=== PATIENT | female | born 1990 | race Caucasian/White ===

== ENCOUNTER → 2019-02-02 09:50 | Outpatient (CLI) | payer OTHER, SELFPAY ==
[2019-02-02 10:27] LABS: Hematocrit 41.2 % (36-46); Mean Corpuscular HGB Conc 33.9 % (30-36); Mean Corpuscular Hemoglobin 30.3 PG (26-34); Mean Corpuscular Volume 89.2 fL (80-100); Platelet Count 233 X10^3/uL (150-400); Red Blood Cell Count 4.62 X10^6/uL (4.0-5.2); Red Cell Distribution Width 12.9 % (11.6-14.8); White Blood Cell Count 9.9 X10^3/uL (4.5-11.0)
== END ==
PROVIDERS: Visit Provider Nurse Practitioner Family
DX: K51.911 Ulcerative colitis, unspecified with rectal bleeding (principal)
CPT/HCPCS: 36415; 85027

== ENCOUNTER 2019-02-03 22:18 | Emergency (ER) | payer OTHER, SELFPAY ==
[2019-02-03 23:00] VITALS: BP 120/69; PULSE 60; RESP 18; TEMP 36.6; O2SAT 98; BMI 23.5
[2019-02-03 23:32] VITALS: BP 110/64; PULSE 59; RESP 19; O2SAT 100
[2019-02-03 23:51] LABS: Prothrombin Time 11.5 SECONDS (10.1-12.7)
[2019-02-03 23:53] LABS: Add Manual Diff / Slide Review NO; Basophils Absolute Auto 0 /uL (0-100); Basophils Percent Auto 0.3 % (0-2); Eosinophils Absolute Auto 100 /uL (0-450); Eosinophils Percent Auto 0.8 % (2-4); Hematocrit 39.1 % (36-46); Hemoglobin 13.1 g/dL (12.0-16.0); Lymphocytes Absolute Auto 3200 /uL (1100-4500); Lymphocytes Percent Auto 23.2 % (25-40); Mean Corpuscular HGB Conc 33.4 % (30-36); Mean Corpuscular Hemoglobin 29.9 PG (26-34); Mean Corpuscular Volume 89.5 fL (80-100); Monocytes Absolute Auto 1100 /uL (0-900); Monocytes Percent Auto 7.9 % (3-14); Neutrophils Absolute Auto 9500 /uL (1500-7000); Neutrophils Percent Auto 67.8 % (50-75); Platelet Count 239 X10^3/uL (150-400); Red Blood Cell Count 4.37 X10^6/uL (4.0-5.2); Red Cell Distribution Width 12.7 % (11.6-14.8); White Blood Cell Count 13.9 X10^3/uL (4.5-11.0)
[2019-02-03 23:54] LABS: PTT Partial Thromboplastin Tim 27 SECONDS (26.4-36.2)
[2019-02-03 23:55] LABS: Alanine Aminotransferase 13 IU/L (9-52); Albumin 3.6 g/dL (3.5-5.0); Albumin Globulin Ratio 1.2 (1.0-2.8); Alkaline Phosphatase 69 U/L (38-126); Aspartate Aminotransferase 15 IU/L (14-36); BUN Creatinine Ratio 16.3 (6-22); Bilirubin Total 0.1 mg/dL (0.2-1.3); Blood Urea Nitrogen 13 mg/dL (7-17); Calcium 8.1 mg/dL (8.4-10.2); Carbon Dioxide 27 mmol/L (22-32); Chloride 103 mmol/L (98-107); Estimated Glomerular Filt Rate > 60.0 mL/min (>60); Globulin 3.1 g/dL (1.7-4.1); Glucose 99 mg/dL (70-100); HEMOLYSIS < 15 (0-50); Lipase 52 U/L (23-300); Potassium 3.7 mmol/L (3.4-5.1); Sodium 139 mmol/L (137-145); Total Protein 6.7 g/dL (6.3-8.2)
[2019-02-04 00:30] VITALS: BP 111/64; PULSE 73; RESP 16; O2SAT 98
[2019-02-04 00:54] LABS: RBC Urine None Seen (0-5/HPF)
[2019-02-04 00:58] VITALS: BP 111/64; PULSE 75; RESP 20; O2SAT 100
[2019-02-04 01:03] LABS: Bacteria Urine Few (2-10); WBC Urine 0-1/HPF (0-5/HPF)
[2019-02-04 01:04] LABS: Calcium Oxalate Crystals Urine Many; Culture Indicated Urine Specimen Cultured; Mucus Urine 3+ (Negative)
--- NOTE | 2019-02-04 01:59 | DI.CT.S_ITS ---
PROCEDURE: CT ABDOMEN PELVIS W CON INDICATIONS: Ulcerative colitis. Left mid abdomen pain. TECHNIQUE: After the administration of intravenous contrast, 5 mm thick sections acquired from the diaphragm to the symphysis. 5 mm coronal and sagittal reformats were acquired. For radiation dose reduction, the following was used: automated exposure control, adjustment of mA and/or kV according to patient size. COMPARISON: None. FINDINGS: Image quality: Excellent. ABDOMEN: Lung bases: Lung bases are clear. Minimal bibasilar pleural thickening. Heart size is normal. Solid organs: Liver is normal in size and enhancement. Gallbladder is unremarkable. Biliary system is non dilated. Pancreas enhances normally. Spleen is normal in size and enhancement. No adrenal nodules. Kidneys demonstrate normal size and enhancement, without hydronephrosis. Peritoneum and bowel: There is diffuse thickening of the wall of the colon from the distal ascending colon throughout the rest of the colon to the rectum. The bowel is nondilated. Findings are consistent with infectious versus inflammatory colitis. Consider ulcerative colitis. No free fluid or air. Nodes and vessels: No retroperitoneal or mesenteric adenopathy by size criteria. Aorta and inferior vena cava are normal in size. Miscellaneous: No ventral hernias. PELVIS: Genitourinary: Bladder wall thickness is normal. Miscellaneous: No inguinal hernias or adenopathy. Bones: No suspicious bony lesions. No vertebral body compression fractures. IMPRESSION: 1. Diffuse wall thickening of the colon from the distal ascending colon through the rectum. Findings are consistent with infectious versus inflammatory colitis. Consider ulcerative colitis. Comment: Final report is concurrent with preliminary interpretation provided by [facility]. Dictated by: Joe Day M.D. on 02/04/2019 at 7:40 Approved by: Joe Day M.D. on 02/04/2019 at 7:46
--- NOTE | 2019-02-04 02:02 | ED_ITS ---
HPI - Abdominal Pain General Chief Complaint: Abdominal Pain Stated Complaint: Ulcerative colitis flare up Time Seen by Provider: 02/04/19 01:51 Source: patient Mode of arrival: ambulatory Limitations: no limitations History of Present Illness HPI narrative: The patient has ulcerative colitis. For about the last 1.5 weeks she has had increased abdominal cramping. She has been having bloody diarrhea. Pain is primarily in the left mid abdomen. She had was seen in clinic. She has been described prednisone , Cipro and Flagyl. Despite these efforts she is still having a lot of bloody diarrhea. She is feeling fatigued. She denies associated fever or chills. Her appetite is decreased but she is still able to eat and drink. She is not vomiting. She denies dysuria. She denies possibility of . Related Data Home Medications Medication Instructions Recorded Confirmed omega-3 fatty acids 1,000 mg 1,000 mg PO DAILY 01/29/19 02/02/19 capsule Probiotic PO DAILY 02/02/19 02/02/19 Previous Rx's Medication Instructions Recorded ciprofloxacin 500 mg tablet 500 mg PO BID 7 Days #14 tab 02/01/19 metronidazole 500 mg tablet 500 mg PO Q8H 7 Days #21 tab 02/01/19 tramadol 50 mg PO Q6-8H PRN #15 tab 02/04/19 Allergies Allergy/AdvReac Type Severity Reaction Status Date / Time Penicillins Allergy turned Verified 02/02/19 09:19 purple and blue as a child Review of Systems Review of Systems ROS Unobtainable: All systems reviewed & are unremarkable except as noted in HPI and below Constitutional Denies chills, Denies fever(s), Denies lethargy and Reports weakness ENT Ears, Nose, Mouth, and Throat: Denies change in voice, Denies neck pain and Denies sore throat Cardiovascular Denies chest pain, Denies irregular heart rhythm, Denies lightheadedness, Denies palpitations, Denies dyspnea, Denies dyspnea on exertion and Denies orthopnea Respiratory Denies cough, Denies dyspnea, Denies dyspnea on exertion and Denies wheezing Gastrointestinal Gastrointestinal: Reports abdominal pain (Left mid abdomen), Denies melena, Denies change in bowel habits, Denies nausea and Denies vomiting Comments: Bloody diarrhea Genitourinary Denies dysuria Musculoskeletal Denies back pain and Denies neck pain Integumentary/Breasts Denies pruritus, Denies erythema, Denies rash and Denies wounds Neurologic Denies confusion and Reports weakness Psychiatric Reports anxiety, Denies confusion, Denies depression, Denies homicidal ideation and Denies suicidal ideation Endocrine Denies palpitations Allergic/Immunologic Denies wheezing [facility] Medical History (Updated 02/04/19 @ 03:37 by Matthew Trejo MD) Anxiety (Acute) Ulcerative colitis (Acute) Surgical History (Updated 02/04/19 @ 03:31 by Matthew Trejo MD) No pertinent past surgical history (Acute) Social History Smoking Status: Current some day smoker Social History Smoking Status: Current some day smoker Exam Initial Vital Signs Initial Vital Signs: Vital Signs Temperature 98 F 02/03/19 23:00 Pulse Rate 60 02/03/19 23:00 Respiratory Rate 18 02/03/19 23:00 Blood Pressure 120/69 02/03/19 23:00 Pulse Oximetry 98 02/03/19 23:00 Const General: cooperative and well developed Nutritional Appearance: well nourished Orientation: alert, awake, oriented x3 and not confused HENPR Head: normocephalic and atraumatic Eyes Conjunctivae: conjunctivae normal Sclera: sclerae normal Neck Neck: No lymphadenopathy and No tender Resp Effort & Inspection: normal respiratory effort, able to speak in complete sentences, no respiratory distress and no use of accessory muscles Auscultation: clear to auscultation bilaterally, no rales, no rhonchi and no wheezes Cardio Rate: regular rate Rhythm: regular rhythm Heart Sounds: no click, no gallops, no murmurs and no rubs Pulses: normal peripheral pulses GI Inspection: non-distended Palpation: soft, no hepatosplenomegaly, No pulsatile mass and tender (Left mid abdominal tenderness without guarding or rebound.) Auscultation: normal bowel sounds Back/Spine/Pelvis Back: No CVA tenderness Skin General: no rashes or lesions noted, No jaundice and No petechiae Neuro General: alert, oriented x3, gait normal and no focal motor deficits Speech: speech normal Extrem General: full ROM, no pedal edema and no calf tenderness Psych Appearance: well kempt Mental Status: mental status grossly normal Attitude: cooperative Thought Content: normal and suicidality Judgment: judgment good Course Course Narrative: The patient has improved after IV fluids and IV Dilaudid. She states she is feeling better. The CT confirms significant colitis with inflammatory changes. I recommended an admission for pain management, and potentially bowel rest with IV fluid support. She declined stating she is unable to afford hospital admission. She will discharged on clear liquids with pain meds in addition to her current medications. Orders Ordered: ED Orders 02/03/19 23:35 Complete Blood Count AUTO DIFF Stat Comprehensive Metabolic Panel Stat Lipase Stat Partial Thromboplastin Time Stat Prothrombin Time INR Stat 02/03/19 23:39 EKG-12 Lead Stat 02/04/19 00:40 Urine Culture Stat Urine Microscopic Stat 02/04/19 01:57 Complete Blood Count AUTO DIFF Stat Comprehensive Metabolic Panel Stat Lipase Stat 02/04/19 01:59 CT abdomen pelvis w con Stat Prothrombin Time INR Stat Discontinued Medications Hydromorphone HCl (Dilaudid) 1 mg IV NOW ONE Stop: 02/04/19 01:58 Last Admin: 02/04/19 02:03 Dose: 1 mg Sodium Chloride (Normal Saline 0.9%) 1,000 mls @ 1,000 mls/hr IV BOLUS ONE Stop: 02/04/19 02:58 Last Infusion: 02/04/19 03:47 Dose: 0 mls/hr Admin: 02/04/19 02:03 Dose: 1,000 mls/hr Vital Signs - 8 hr 02/03/19 23:00 02/03/19 23:32 02/04/19 00:30 Temperature 98 F Pulse Rate 60 59 L 73 Respiratory Rate 18 19 16 Blood Pressure 120/69 Blood Pressure [Left Arm] 110/64 111/64 Pulse Oximetry 98 100 98 02/04/19 00:58 02/04/19 03:44 Temperature Pulse Rate 75 60 Respiratory Rate 20 20 Blood Pressure Blood Pressure [Left Arm] 111/64 103/60 Pulse Oximetry 100 100 MDM - Abdominal Pain Lab Data Result diagrams: 02/03/19 23:35 02/03/19 23:35 Lab Results 02/03/19 02/03/19 02/03/19 Range/Units 23:35 23:35 23:35 WBC 13.9 H (4.5-11.0) X10^3/uL RBC 4.37 (4.0-5.2) X10^6/uL Hgb 13.1 (12.0-16.0) g/dL Hct 39.1 (36-46) % MCV 89.5 (80-100) fL MCH 29.9 (26-34) PG MCHC 33.4 (30-36) % RDW 12.7 (11.6-14.8) % Plt Count 239 (150-400) X10^3/uL Neut % (Auto) 67.8 (50-75) % Lymph % (Auto) 23.2 L (25-40) % [place] % (Auto) 7.9 (3-14) % Eos % (Auto) 0.8 L (2-4) % Baso % (Auto) 0.3 (0-2) % Neut # (Auto) 9500 H (8074-2454) /uL Lymph # (Auto) 3200 (1301-3272) /uL [place] # (Auto) 1100 H (0-900) /uL Eos # (Auto) 100 (0-450) /uL Baso # (Auto) 0 (0-100) /uL PT 11.5 (10.1-12.7) SECONDS INR 1.0 (0.9-1.3) APTT 27 (26.4-36.2) SECONDS Sodium 139 (137-145) mmol/L Potassium 3.7 (3.4-5.1) mmol/L Chloride 103 (98-107) mmol/L Carbon Dioxide 27 (22-32) mmol/L BUN 13 (7-17) mg/dL Creatinine 0.80 (0.52-1.04) mg/dL Estimated GFR > 60.0 (>60) mL/min BUN/Creatinine Ratio 16.3 (6-22) Glucose 99 (70-100) mg/dL Calcium 8.1 L (8.4-10.2) mg/dL Total Bilirubin 0.1 L (0.2-1.3) mg/dL AST 15 (14-36) IU/L ALT 13 (9-52) IU/L Alkaline Phosphatase 69 (38-126) U/L Total Protein 6.7 (6.3-8.2) g/dL Albumin 3.6 (3.5-5.0) g/dL Globulin 3.1 (1.7-4.1) g/dL Albumin/Globulin Ratio 1.2 (1.0-2.8) Lipase 52 (23-300) U/L Urine RBC (0-5/HPF) Urine WBC (0-5/HPF) Calcium Oxalate Crystal Urine Bacteria (None) Urine Mucus (Negative) Ur Culture Indicated? 02/04/19 Range/Units 00:40 WBC (4.5-11.0) X10^3/uL RBC (4.0-5.2) X10^6/uL Hgb (12.0-16.0) g/dL Hct (36-46) % MCV (80-100) fL MCH (26-34) PG MCHC (30-36) % RDW (11.6-14.8) % Plt Count (150-400) X10^3/uL Neut % (Auto) (50-75) % Lymph % (Auto) (25-40) % [place] % (Auto) (3-14) % Eos % (Auto) (2-4) % Baso % (Auto) (0-2) % Neut # (Auto) (7275-9753) /uL Lymph # (Auto) (7315-4380) /uL [place] # (Auto) (0-900) /uL Eos # (Auto) (0-450) /uL Baso # (Auto) (0-100) /uL PT (10.1-12.7) SECONDS INR (0.9-1.3) APTT (26.4-36.2) SECONDS Sodium (137-145) mmol/L Potassium (3.4-5.1) mmol/L Chloride (98-107) mmol/L Carbon Dioxide (22-32) mmol/L BUN (7-17) mg/dL Creatinine (0.52-1.04) mg/dL Estimated GFR (>60) mL/min BUN/Creatinine Ratio (6-22) Glucose (70-100) mg/dL Calcium (8.4-10.2) mg/dL Total Bilirubin (0.2-1.3) mg/dL AST (14-36) IU/L ALT (9-52) IU/L Alkaline Phosphatase (38-126) U/L Total Protein (6.3-8.2) g/dL Albumin (3.5-5.0) g/dL Globulin (1.7-4.1) g/dL Albumin/Globulin Ratio (1.0-2.8) Lipase (23-300) U/L Urine RBC None seen (0-5/HPF) Urine WBC 0-1/hpf (0-5/HPF) Calcium Oxalate Crystal Many H Urine Bacteria Few (2-10) H (None) Urine Mucus 3+ H (Negative) Ur Culture Indicated? Specimen cultured Point of care testing: Point of Care Testing Test Results Negative Urine Dip Bedside Urine Glucose Negative Bedside Urine Bilirubin - Negative Bedside Urine Ketone +/- 5 Urine Specific [place] 1.030 Bedside Urine Occult Blood - Negative Bedside Urine pH 6.0 Bedside Urine Protein + 30 Bedside Urine Urobilinogen +/- 1mg Bedside Urine Nitrite + Positive Bedside Urine Leukocytes + [address] scan - abdomen: Radiologist's impression: Diffuse colon wall thickening extending from the distal ascending colon to the sigmoid colon. Findings most consistent with infl ammatory versus infectious colitis Discharge Plan Departure Patient Disposition: Home Clinical Impression: Ulcerative colitis with rectal bleeding Qualifiers: Ulcerative colitis location: ulcerative pancolitis Qualified Code(s): K51.011 - Ulcerative (chronic) pancolitis with rectal bleeding Instructions: DI for Ulcerative Colitis Activity Restrictions/Additional Instructions: Continue with your current medications. Tramadol every 6 hours as needed for pain. I would recommend a clear liquid diet until your symptoms improve. Return the ER if he has increasing pain or fever. Prescriptions: New tramadol 50 mg tablet 50 mg PO Q6-8H PRN (Reason: pain) Qty: 15 RF: 0 No Action omega-3 fatty acids [Fish Oil Concentrate] 1,000 mg capsule 1,000 mg PO DAILY RF: 0 metronidazole 500 mg tablet 500 mg PO Q8H 7 Days Qty: 21 RF: 0 ciprofloxacin HCl [Cipro] 500 mg tablet 500 mg PO BID 7 Days Qty: 14 RF: 0 Probiotic PO DAILY RF: 0
[2019-02-04] MEDS: HYDROMORPHONE 1 MG INJ IV (02:03)
[2019-02-04] MEDS: SODIUM CHLORIDE 0.9% 1,000 ML 1000 ML IV (02:03)
[2019-02-04 03:44] VITALS: BP 103/60; PULSE 60; RESP 20; O2SAT 100
== END 2019-02-04 04:00 | disposition home or self-care (01) ==
PROVIDERS: Emergency Provider Emergency Medicine
DX: K51.011 Ulcerative (chronic) pancolitis with rectal bleeding (principal); R53.83 Other fatigue; K92.1 Melena
CPT/HCPCS: 36591; 74177; 80053; 81003; 81015; 81025; 83690; 85025; 85610; 85730; 87086; 96361; 96374; 99283; 99285; J1170; Q9967

== ENCOUNTER 2019-02-04 19:13 | Inpatient (IN) | payer OTHER, SELFPAY ==
[2019-02-04 19:20] VITALS: BP 110/73; PULSE 65; RESP 20; TEMP 36.9; O2SAT 99
--- NOTE | 2019-02-04 19:39 | ED_ITS ---
HPI - Abdominal Pain General Chief Complaint: Abdominal Pain Stated Complaint: states has Colitis and a flare up Time Seen by Provider: 02/04/19 19:34 Source: patient Mode of arrival: ambulatory Limitations: no limitations History of Present Illness HPI narrative: Patient is a 28-year-old female with a history of ulcerative colitis. Was admitted back in 2017 for a ?flare up? has seen Dr. Patrice Parsons with GI in [place] in 2017. But has not had any follow-up since then. Couple days ago patient started having generalized abdominal pain and rectal bleeding. Was placed on prednisone and Cipro and Flagyl. She is on day 6 of prednisone. She was seen here in the emergency department last evening for rectal bleeding and abdominal pain. Had a CT scan performed which showed a cristobal colitis. She did have an elevated white blood cell count. There was discussion at that time of being admitted to the hospital however the patient declined. She returns this evening for continued symptoms. Related Data Home Medications Medication Instructions Recorded Confirmed omega-3 fatty acids 1,000 mg 1,000 mg PO DAILY 01/29/19 02/02/19 capsule Probiotic PO DAILY 02/02/19 02/02/19 Previous Rx's Medication Instructions Recorded ciprofloxacin 500 mg tablet 500 mg PO BID 7 Days #14 tab 02/01/19 metronidazole 500 mg tablet 500 mg PO Q8H 7 Days #21 tab 02/01/19 tramadol 50 mg PO Q6-8H PRN #15 tab 02/04/19 Allergies Allergy/AdvReac Type Severity Reaction Status Date / Time Penicillins Allergy turned Verified 02/02/19 09:19 purple and blue as a child Review of Systems Constitutional Denies fever(s) Cardiovascular Denies chest pain and Denies dyspnea Respiratory Denies dyspnea Gastrointestinal Gastrointestinal: Reports abdominal pain and Reports diarrhea Comments: Blood red blood per rectum Genitourinary Denies dysuria Musculoskeletal Denies myalgias and Denies arthralgias Integumentary/Breasts Denies lesions and Denies rash Neurologic Denies behavioral changes Psychiatric Denies behavioral changes Hematologic/Lymphatic Denies easy bleeding and Denies easy bruising Allergic/Immunologic Denies urticaria [facility] Medical History Anxiety (Acute) Ulcerative colitis (Acute) Surgical History No pertinent past surgical history (Acute) Social History Smoking Status: Current some day smoker Social History household members: spouse and family Smoking Status: Current some day smoker alcohol intake: never Exam Initial Vital Signs Initial Vital Signs: Vital Signs Temperature 98.4 F 02/04/19 19:20 Pulse Rate 65 02/04/19 19:20 Respiratory Rate 20 02/04/19 19:20 Blood Pressure 110/73 02/04/19 19:20 Pulse Oximetry 99 02/04/19 19:20 Const General: cooperative, comfortable, well developed, well groomed and No acute distress Orientation: alert, awake and oriented x3 HENMT Head: normal to inspection and normocephalic Resp Effort & Inspection: normal respiratory effort Auscultation: clear to auscultation bilaterally Cardio Rate: regular rate Rhythm: regular rhythm Pulses: radial pulses present GI Inspection: non-distended Palpation: soft, No firm and tender (Diffusely tender) Rectal Exam: normal sphincter tone and heme negative stool Skin Lesions: no lesions Rashes: no rashes Neuro General: alert, awake and oriented x3 Cognition: normal cognition Speech: speech normal Extrem General: normal to inspection and capillary refill normal Course Orders Ordered: ED Orders 02/04/19 19:45 Complete Blood Count AUTO DIFF Stat Comprehensive Metabolic Panel Stat Lactate (Lactic Acid) Stat Lipase Stat Test Serum,Qual Stat 02/04/19 20:02 Urine Microscopic Stat 02/04/19 23:02 Education, smoking cessation ONGOING 02/05/19 05:00 Basic Metabolic Panel Routine Complete Blood Count AUTO DIFF Routine 02/05/19 23:15 Consult to Dietitian, Adult Routine Acetaminophen (Tylenol) 650 mg PO Q6HR PRN PRN Reason: As Needed for Fever/Mild Pain Hydromorphone HCl (Dilaudid) 0.5 mg IV Q4HR PRN PRN Reason: Pain, Severe (7-10) Dextrose/Sodium Chloride (Dextrose 5%-0.45% Ns) 1,000 mls @ 100 mls/hr IV CONT CLEM Metronidazole (Flagyl) 500 mg in 100 mls @ 100 mls/hr IV Q6H CLEM Ceftriaxone Sodium/Dextrose (Rocephin) 1 gm in 50 mls @ 100 mls/hr IV Q24H [facility] Ketorolac Tromethamine (Toradol) 15 mg IV Q6HR CLEM Stop: 02/09/19 23:13 Naloxone HCl (Narcan) 0.2 mg IV Q2MIN PRN PRN Reason: Opiate Reversal Non-Formulary Medication (Probiotic) 250 1000units PO DAILY [facility] Ondansetron HCl (Zofran) 4 mg IV Q8HR PRN PRN Reason: Nausea And Vomiting Discontinued Medications Hydromorphone HCl (Dilaudid) 0.5 mg IV NOW ONE Stop: 02/04/19 20:21 Last Admin: 02/04/19 20:24 Dose: 0.5 mg Hydromorphone HCl (Dilaudid) 0.5 mg IV NOW ONE Stop: 02/04/19 22:58 Last Admin: 02/04/19 23:02 Dose: 0.5 mg Sodium Chloride (Normal Saline 0.9%) 1,000 mls @ 1,000 mls/hr IV BOLUS ONE Stop: 02/04/19 20:42 Last Infusion: 02/04/19 21:14 Dose: 0 mls/hr Admin: 02/04/19 20:11 Dose: 1,000 mls/hr Vital Signs - 8 hr 02/04/19 19:20 02/04/19 21:00 02/04/19 21:08 Temperature 98.4 F Pulse Rate 65 68 Respiratory Rate 20 18 Blood Pressure 110/73 Blood Pressure [Right Arm] 118/71 Pulse Oximetry 99 98 02/04/19 22:38 02/04/19 23:49 Temperature Pulse Rate 62 64 Respiratory Rate 16 16 Blood Pressure Blood Pressure [Right Arm] 112/61 110/50 L Pulse Oximetry 100 100 MDM - Abdominal Pain Lab Data Attestation: I reviewed the patient's lab results. Result diagrams: 02/04/19 19:45 02/04/19 19:45 Lab Results 02/04/19 02/04/19 02/04/19 Range/Units 19:45 19:45 19:45 WBC 16.8 H (4.5-11.0) X10^3/uL RBC 4.39 (4.0-5.2) X10^6/uL Hgb 13.2 (12.0-16.0) g/dL Hct 39.3 (36-46) % MCV 89.5 (80-100) fL MCH 30.0 (26-34) PG MCHC 33.5 (30-36) % RDW 13.0 (11.6-14.8) % Plt Count 225 (150-400) X10^3/uL Neut % (Auto) 85.4 H (50-75) % Lymph % (Auto) 10.0 L (25-40) % [place] % (Auto) 4.4 (3-14) % Eos % (Auto) 0.0 L (2-4) % Baso % (Auto) 0.2 (0-2) % Neut # (Auto) 18021 H (9334-8926) /uL Lymph # (Auto) 1700 (9633-0291) /uL [place] # (Auto) 700 (0-900) /uL Eos # (Auto) 0 (0-450) /uL Baso # (Auto) 0 (0-100) /uL Sodium 137 (137-145) mmol/L Potassium 3.6 (3.4-5.1) mmol/L Chloride 102 (98-107) mmol/L Carbon Dioxide 26 (22-32) mmol/L BUN 8 (7-17) mg/dL Creatinine 0.80 (0.52-1.04) mg/dL Estimated GFR > 60.0 (>60) mL/min BUN/Creatinine Ratio 10.0 (6-22) Glucose 106 H (70-100) mg/dL Lactate 0.9 (0.7-2.1) mmol/L Calcium 8.7 (8.4-10.2) mg/dL Total Bilirubin 0.4 (0.2-1.3) mg/dL AST 18 (14-36) IU/L ALT 21 (9-52) IU/L Alkaline Phosphatase 63 (38-126) U/L Total Protein 7.1 (6.3-8.2) g/dL Albumin 3.9 (3.5-5.0) g/dL Globulin 3.2 (1.7-4.1) g/dL Albumin/Globulin Ratio 1.2 (1.0-2.8) Lipase 28 (23-300) U/L Serum , Qual (Negative) Urine RBC (0-5/HPF) Urine WBC (0-5/HPF) Ur Squamous Epith Cells (0-5/HPF) Urine Bacteria (None) Ur Culture Indicated? 02/04/19 02/04/19 Range/Units 19:45 20:02 WBC (4.5-11.0) X10^3/uL RBC (4.0-5.2) X10^6/uL Hgb (12.0-16.0) g/dL Hct (36-46) % MCV (80-100) fL MCH (26-34) PG MCHC (30-36) % RDW (11.6-14.8) % Plt Count (150-400) X10^3/uL Neut % (Auto) (50-75) % Lymph % (Auto) (25-40) % [place] % (Auto) (3-14) % Eos % (Auto) (2-4) % Baso % (Auto) (0-2) % Neut # (Auto) (7152-1008) /uL Lymph # (Auto) (7816-2484) /uL [place] # (Auto) (0-900) /uL Eos # (Auto) (0-450) /uL Baso # (Auto) (0-100) /uL Sodium (137-145) mmol/L Potassium (3.4-5.1) mmol/L Chloride (98-107) mmol/L Carbon Dioxide (22-32) mmol/L BUN (7-17) mg/dL Creatinine (0.52-1.04) mg/dL Estimated GFR (>60) mL/min BUN/Creatinine Ratio (6-22) Glucose (70-100) mg/dL Lactate (0.7-2.1) mmol/L Calcium (8.4-10.2) mg/dL Total Bilirubin (0.2-1.3) mg/dL AST (14-36) IU/L ALT (9-52) IU/L Alkaline Phosphatase (38-126) U/L Total Protein (6.3-8.2) g/dL Albumin (3.5-5.0) g/dL Globulin (1.7-4.1) g/dL Albumin/Globulin Ratio (1.0-2.8) Lipase (23-300) U/L Serum , Qual Negative (Negative) Urine RBC None seen (0-5/HPF) Urine WBC 0-1/hpf (0-5/HPF) Ur Squamous Epith Cells 0-1 /hpf (0-5/HPF) Urine Bacteria None seen (None) Ur Culture Indicated? Cult not indicated Point of care testing: Urine Dip Bedside Urine Glucose Negative Bedside Urine Bilirubin - Negative Bedside Urine Ketone +/- 5 Urine Specific [place] 1.025 Bedside Urine Occult Blood - Negative Bedside Urine pH 6.0 Bedside Urine Protein - Negative Bedside Urine Urobilinogen - Negative Bedside Urine Nitrite - Negative Bedside Urine Leukocytes + [address] scan - abdomen: Radiologist's impression: [address] [address] XRay Report Signed Patient: Riccardo Dave MMR#: [id number] : 3Acct:[id number] Age/Sex: 89 / FDate of Service: 02/04/19 Loc: ED Accession Number: [id number] Procedure: XR chest 2V Ordering Provider: Marcello Gomes D.O. PROCEDURE: XR CHEST 2V INDICATIONS: Cough eval for pneumonia TECHNIQUE: 2 views of the chest were acquired. COMPARISON: [facility], , CHEST 1 VIEW, 08/19/2017, 11:41. FINDINGS: Surgical changes and devices: Surgical clips are seen in left axilla. Lungs and pleura: Blunting of left costophrenic angle is seen suggestive of small left pleural effusion. No focal infiltrate or gross pneumothorax. Right lung is clear. Mediastinum: Mediastinal contours are normal. Heart size is mildly enlarged. Bones and chest wall: No suspicious bony abnormalities. Soft tissues appear unremarkable. Osteoarthritic changes in bilateral shoulder joints are seen. IMPRESSION: Suggestion of small left pleural effusion/thickening. No focal infiltrate or pneumothorax. Dictated by: Nikolas Poon M.D. on 02/04/2019 at 19:09 Approved by: Nikolas Poon M.D. on 02/04/2019 at 19:11 [facility] Narrative Medical decision making narrative: The CT scan included in this note is for reference purposes. It was ordered during her visit here last evening. I discussed the case with Dr. Taylor with General surgery who stated that there would be no emergent/urgent surgical intervention and that the patient could be admitted under the medicine service. She also brought up that the patient may be better off at a facility with a GI service. I did discuss the case with Internal Medicine at [facility] who had beds available however the hos nneka stated that he would only accept the patient after we talked with the GI providers. Upon discussing this with the patient she stated that she did not want to be transferred. She would like to be admitted at this hospital because there is the potential that GI would not be involved. I discussed the case with VALERIE Ro the night hospitalist who will admit the patient for further evaluation and treatment. Patient agrees with the admission. Discharge Plan Departure Patient Disposition: Admitted as Observation Clinical Impression: Colitis Discharge Date/Time: 02/05/19 00:10 Interventions: ED Discharge Assessment Last Done: 02/04/19 23:51 Admit Date/Time: 02/04/19 22:59 Admit Provider: Maritza Ro
[2019-02-04 20:07] LABS: Add Manual Diff / Slide Review NO; Basophils Absolute Auto 0 /uL (0-100); Basophils Percent Auto 0.2 % (0-2); Eosinophils Absolute Auto 0 /uL (0-450); Hematocrit 39.3 % (36-46); Hemoglobin 13.2 g/dL (12.0-16.0); Lymphocytes Absolute Auto 1700 /uL (1100-4500); Mean Corpuscular HGB Conc 33.5 % (30-36); Mean Corpuscular Volume 89.5 fL (80-100); Monocytes Absolute Auto 700 /uL (0-900); Monocytes Percent Auto 4.4 % (3-14); Neutrophils Absolute Auto 14300 /uL (1500-7000); Neutrophils Percent Auto 85.4 % (50-75); Platelet Count 225 X10^3/uL (150-400); Red Blood Cell Count 4.39 X10^6/uL (4.0-5.2); White Blood Cell Count 16.8 X10^3/uL (4.5-11.0)
[2019-02-04] MEDS: SODIUM CHLORIDE 0.9% 1,000 ML 1000 ML IV (20:11)
[2019-02-04 20:17] LABS: Bacteria Urine None Seen; RBC Urine None Seen (0-5/HPF)
[2019-02-04 20:17] LABS: Alanine Aminotransferase 21 IU/L (9-52); Albumin 3.9 g/dL (3.5-5.0); Albumin Globulin Ratio 1.2 (1.0-2.8); Alkaline Phosphatase 63 U/L (38-126); Aspartate Aminotransferase 18 IU/L (14-36); Bilirubin Total 0.4 mg/dL (0.2-1.3); Blood Urea Nitrogen 8 mg/dL (7-17); Calcium 8.7 mg/dL (8.4-10.2); Carbon Dioxide 26 mmol/L (22-32); Chloride 102 mmol/L (98-107); Estimated Glomerular Filt Rate > 60.0 mL/min (>60); Globulin 3.2 g/dL (1.7-4.1); Glucose 106 mg/dL (70-100); HEMOLYSIS < 15 (0-50); Lipase 28 U/L (23-300); Potassium 3.6 mmol/L (3.4-5.1); Sodium 137 mmol/L (137-145); Total Protein 7.1 g/dL (6.3-8.2)
[2019-02-04 20:18] LABS: Lactate (Lactic Acid) 0.9 mmol/L (0.7-2.1)
[2019-02-04 20:23] LABS: Pregnancy Test Serum,Qual Negative (Negative)
[2019-02-04 20:24] LABS: Culture Indicated Urine Cult Not Indicated; Squamous Epithelial Cell Urine 0-1 /HPF (0-5/HPF); WBC Urine 0-1/HPF (0-5/HPF)
[2019-02-04] MEDS: HYDROMORPHONE 1 MG INJ 0.5 MG IV ×2 (20:24→23:02)
[2019-02-04 21:00] VITALS: BP 118/71
[2019-02-04 21:08] VITALS: PULSE 68; RESP 18; O2SAT 98
[2019-02-04 22:38] VITALS: BP 112/61; PULSE 62; RESP 16; O2SAT 100
[2019-02-04 23:49] VITALS: BP 110/50; PULSE 64; RESP 16; O2SAT 100
[2019-02-05] VITALS (9 sets, daily range): BP systolic 110–126; BP diastolic 49–70; PULSE 56–74; RESP 16–18; TEMP 36.4–37; O2SAT 97–100; BMI 23.5
[2019-02-05] MEDS: DEXTROSE 5%-0.45% NS 1,000 ML 100 ML IV ×2 (00:45→13:33)
--- NOTE | 2019-02-05 00:45 | PM.HP.1 ---
History of Present Illness Date Patient Seen: 02/04/19 Time Patient Seen: 23:00 Chief complaint: states has Colitis and a flare up Narrative: 28 y.o. female with a several day with a history of ulcerative colitis, now seen a second day in a row for this. She was seen on 02/04 in the evening, was diagnosed with a cristobal colitis and was advised to stay, but declined. CT scan performed yesterday indicated a cristobal colitis. She was discharged on oral predinisone, ciprofloxacin and metronidazole. She returns today with worsening abdominal cramping and bloody stool. In the ED, they discussed her case with Dr. Taylor, general surgery, then with a network operations analyst at [facility] in [place] both who advised conservative medical management with fluids, bowel rest and antibiotics. Since yesterday her white count increased from 13 to 16. Patient states she was admitted back in 2017 for a ?flare up? and was seen Dr. Patrice Parsons with GI in [place] in 2017. But has not had any follow-up since then. Patient History Medical History (Updated 02/05/19 @ 01:11 by ASH Love) Ulcerative colitis with rectal bleeding (Acute 2012) Ulcerative colitis (Acute) Anxiety (Chronic) Surgical History (Updated 02/05/19 @ 00:57 by ASH Love) History of repair of anterior cruciate ligament of right knee (Inactive) Family History (Updated 02/05/19 @ 00:58 by ASH Love) Mother IBS (irritable bowel syndrome) Sister IBS (irritable bowel syndrome) Social History household members: spouse and family Smoking Status: Current some day smoker alcohol intake: never Family & Social History Social History: household members spouse,family Prior Living Arrangements House Safety & Behavioral: Feels Safe in Current Yes Environment Been Physically Hurt or No Threatened By a Person Suicidal Ideation Description None Tobacco & Substance use: Tobacco type smokeless tobacco Smoking Status Current some day smoker alcohol intake never Substance Use Type does not use Meds Home Medications Medication Instructions Recorded Confirmed Type omega-3 fatty acids 1,000 mg 1,000 mg PO DAILY 01/29/19 02/05/19 History capsule ciprofloxacin 500 mg tablet 500 mg PO BID 7 Days #14 tab 02/01/19 02/05/19 Rx metronidazole 500 mg tablet 500 mg PO Q8H 7 Days #21 tab 02/01/19 02/05/19 Rx Probiotic 1 cap PO DAILY 02/02/19 02/05/19 History tramadol 50 mg PO Q6-8H PRN #15 tab 02/04/19 02/05/19 Rx Allergies Allergy/AdvReac Type Severity Reaction Status Date / Time Penicillins Allergy turned Verified 02/02/19 09:19 purple and blue as a child Review of Systems Review of Systems Patient states she has been warmer at night, poor appetite, only able to tolerate jello, has had nausea from receiving dilaudid in the ED, but no vomiting, has abdominal cramping, bloody and runny stool and back spasms. Denies fever, shortness of breath, chest pain, difficulty swallowing, or numbing or tingling. Exam Vital Signs (past 8 hours): - 02/04/19 19:20 02/04/19 21:00 02/04/19 21:08 Temperature 98.4 F Pulse Rate 65 68 Respiratory Rate 20 18 Blood Pressure 110/73 Blood Pressure [Right Arm] 118/71 Pulse Oximetry 99 98 02/04/19 22:38 02/04/19 23:49 Temperature Pulse Rate 62 64 Respiratory Rate 16 16 Blood Pressure Blood Pressure [Right Arm] 112/61 110/50 L Pulse Oximetry 100 100 Oxygen Delivery Method Room Air Narrative Exam Narrative: Gen: Alert, oriented 28 y.o. well developed female, NAD HEENT: normocephalic, atraumatic, conjunctiva clear, sclera non-icteric, oral mucosa pink and moist Neck: supple, full ROM Resp: Lungs CTA, non-labored breathing CV: RRR, no murmur or rubs Abd: soft, diffusely tender, hyperactive BTs Skin: no lesions or rashes, dry and intact Neuro: Alert and oriented X 4 w/no focal deficits Extremities: moves all 4 extremities, is ambulatory Psyche: normal mood and affect. Objective Labs Result Diagrams: 02/04/19 19:45 02/04/19 19:45 Labs: Laboratory Results - last 24 hr 02/04/19 02/04/19 02/04/19 19:45 19:45 19:45 WBC 16.8 H RBC 4.39 Hgb 13.2 Hct 39.3 MCV 89.5 MCH 30.0 MCHC 33.5 RDW 13.0 Plt Count 225 Neut % (Auto) 85.4 H Lymph % (Auto) 10.0 L [place] % (Auto) 4.4 Eos % (Auto) 0.0 L Baso % (Auto) 0.2 Neut # (Auto) 96266 H Lymph # (Auto) 1700 [place] # (Auto) 700 Eos # (Auto) 0 Baso # (Auto) 0 Sodium 137 Potassium 3.6 Chloride 102 Carbon Dioxide 26 BUN 8 Creatinine 0.80 Estimated GFR > 60.0 BUN/Creatinine Ratio 10.0 Glucose 106 H Lactate 0.9 Calcium 8.7 Total Bilirubin 0.4 AST 18 ALT 21 Alkaline Phosphatase 63 Total Protein 7.1 Albumin 3.9 Globulin 3.2 Albumin/Globulin Ratio 1.2 Lipase 28 Serum , Qual Urine RBC Urine WBC Ur Squamous Epith Cells Urine Bacteria Ur Culture Indicated? 02/04/19 02/04/19 19:45 20:02 WBC RBC Hgb Hct MCV MCH MCHC RDW Plt Count Neut % (Auto) Lymph % (Auto) [place]cdonald % (Auto) Eos % (Auto) Baso % (Auto) Neut # (Auto) Lymph # (Auto) [place]cd[place] # (Auto) Eos # (Auto) Baso # (Auto) Sodium Potassium Chloride Carbon Dioxide BUN Creatinine Estimated GFR BUN/Creatinine Ratio Glucose Lactate Calcium Total Bilirubin AST ALT Alkaline Phosphatase Total Protein Albumin Globulin Albumin/Globulin Ratio Lipase Serum , Qual Negative Urine RBC None seen Urine WBC 0-1/hpf Ur Squamous Epith Cells 0-1 /hpf Urine Bacteria None seen Ur Culture Indicated? Cult not indicated Assessment & Plan (1) Ulcerative colitis with rectal bleeding: Current visit: Yes Status: Acute Assessment & Plan narrative: Patient will be provided bowel rest, fluids and antibiotic treatment - IV Ceftriaxone 1 gram daily and metronidazole 500 mg IV 4 times daily - Pain control with toradal and low dose IV dilaudid - d5 half normal saline at 100 ml/hour Patient is admitted to observation as his/her stay is anticipated to exceed 2 midnights. D5 half NS at 100 ml/hour VTE Prophylaxis: bilateral SCDs Disposition: Probable discharge to home Code status: Full Code Admission time: 50 minutes Meds reconciled: Yes/No/Partial based on current med list Time Spent With Patient Time with patient: 15-24 minutes
[2019-02-05] MEDS: CEFTRIAXONE 1 GM/50 ML FROZ.PIGGY IV ×2 (00:49→23:48)
[2019-02-05] MEDS: KETOROLAC 30 MG/ML VIAL 15 MG IV (01:15)
[2019-02-05] MEDS: metroNIDAZOLE 500 MG/100 ML PIGGYBACK 100 MG IV ×4 (01:17→20:15)
--- NOTE | 2019-02-05 01:48 | PC.NURSE ---
Told by pt nurse order to dc tele is there and it is to be dc'd
--- NOTE | 2019-02-05 02:26 | PC.NURSE ---
Admission note: Pt arrived at 0020 by w/c accompanied by ED RN, transferred self to bed with no issues, IV fluids initiated and meds given per MAR. Admission was notable for abdominal pain, bloating, diarrhea, and nausea. Pt has hx of UC and had been given medications for this current flare outpatient, verified those meds in EMAR, told pt to not take home meds, pt acknowledged. Oriented pt to room, call light, safety measures and checks complete, pt is a low fall risk. Pt had a BM during admission, unfortunately it was mixed with urine and was not suitable for lab sample, visible blood in the diarrhea. Pt aware that stool sample is required and to call next time she has a BM. Pt acknowledged all teaching and was allowed to sleep.
[2019-02-05 05:45] LABS: Add Manual Diff / Slide Review NO; Basophils Absolute Auto 100 /uL (0-100); Basophils Percent Auto 0.4 % (0-2); Eosinophils Absolute Auto 200 /uL (0-450); Hematocrit 36.4 % (36-46); Hemoglobin 12.3 g/dL (12.0-16.0); Lymphocytes Absolute Auto 3000 /uL (1100-4500); Lymphocytes Percent Auto 26.2 % (25-40); Mean Corpuscular HGB Conc 33.8 % (30-36); Mean Corpuscular Hemoglobin 30.2 PG (26-34); Mean Corpuscular Volume 89.4 fL (80-100); Monocytes Absolute Auto 900 /uL (0-900); Monocytes Percent Auto 8.2 % (3-14); Neutrophils Absolute Auto 7300 /uL (1500-7000); Neutrophils Percent Auto 63.2 % (50-75); Platelet Count 201 X10^3/uL (150-400); Red Blood Cell Count 4.07 X10^6/uL (4.0-5.2); Red Cell Distribution Width 12.6 % (11.6-14.8); White Blood Cell Count 11.6 X10^3/uL (4.5-11.0)
[2019-02-05 05:55] LABS: BUN Creatinine Ratio 11.3 (6-22); Blood Urea Nitrogen 9 mg/dL (7-17); Calcium 8.2 mg/dL (8.4-10.2); Carbon Dioxide 26 mmol/L (22-32); Chloride 105 mmol/L (98-107); Estimated Glomerular Filt Rate > 60.0 mL/min (>60); Glucose 102 mg/dL (70-100); HEMOLYSIS < 15 (0-50); Potassium 3.4 mmol/L (3.4-5.1); Sodium 137 mmol/L (137-145)
[2019-02-05] MEDS: HYDROMORPHONE 0.5 MG INJ IV ×2 (06:37→22:55)
[2019-02-05] MEDS: ONDANSETRON 4 MG/2 ML INJ IV (07:00)
[2019-02-05] MEDS: KETOROLAC 15 MG/ML VIAL IV ×3 (08:23→20:15)
[2019-02-05] MEDS: LACTOBACILLUS ACIDOPHILUS TABLET 1 EACH PO (08:24)
--- NOTE | 2019-02-05 10:09 | P.PN_ITS ---
Subjective Date Patient Seen: 02/05/19 Time Patient Seen: 10:09 Interval history: She is seen in her room today to follow-up the ulcerative colitis. The white blood count is 11.6. She had been on prednisone as an outpatient but is not currently on steroids. She is moving out of the area and already has a GI doctor elsewhere. This is a chronic ulcer colitis patient who could not be treated as an outpatient any longer as she had failed to improve on oral prednisone, etc. Exam Vital Signs (past 8 hours): - 02/05/19 04:00 02/05/19 07:30 Temperature 97.8 F Pulse Rate 64 Respiratory Rate 18 Blood Pressure 110/68 Pulse Oximetry 100 99 Oxygen Delivery Method Room Air Oxygen Flow Rate 0 Narrative Exam Narrative: She is alert and oriented x3, no apparent distress. Heart is regular rate and rhythm without murmur. Lungs are clear to auscultation bilaterally. Abdomen is soft, bowel sounds positive, nontender, no organomegaly. Extremities have no ankle edema. Objective Labs Result Diagrams: 02/05/19 05:30 02/05/19 05:30 Labs: Laboratory Results - last 24 hr 02/04/19 02/04/19 02/04/19 19:45 19:45 19:45 WBC 16.8 H RBC 4.39 Hgb 13.2 Hct 39.3 MCV 89.5 MCH 30.0 MCHC 33.5 RDW 13.0 Plt Count 225 Neut % (Auto) 85.4 H Lymph % (Auto) 10.0 L [place] % (Auto) 4.4 Eos % (Auto) 0.0 L Baso % (Auto) 0.2 Neut # (Auto) 51825 H Lymph # (Auto) 1700 [place] # (Auto) 700 Eos # (Auto) 0 Baso # (Auto) 0 Sodium 137 Potassium 3.6 Chloride 102 Carbon Dioxide 26 BUN 8 Creatinine 0.80 Estimated GFR > 60.0 BUN/Creatinine Ratio 10.0 Glucose 106 H Lactate 0.9 Calcium 8.7 Total Bilirubin 0.4 AST 18 ALT 21 Alkaline Phosphatase 63 Total Protein 7.1 Albumin 3.9 Globulin 3.2 Albumin/Globulin Ratio 1.2 Lipase 28 Serum , Qual Urine RBC Urine WBC Ur Squamous Epith Cells Urine Bacteria Ur Culture Indicated? 02/04/19 02/04/19 02/05/19 19:45 20:02 05:30 WBC 11.6 H RBC 4.07 Hgb 12.3 Hct 36.4 MCV 89.4 MCH 30.2 MCHC 33.8 RDW 12.6 Plt Count 201 Neut % (Auto) 63.2 D Lymph % (Auto) 26.2 [place] % (Auto) 8.2 Eos % (Auto) 2.0 Baso % (Auto) 0.4 Neut # (Auto) 7300 H Lymph # (Auto) 3000 [place] # (Auto) 900 Eos # (Auto) 200 Baso # (Auto) 100 Sodium Potassium Chloride Carbon Dioxide BUN Creatinine Estimated GFR BUN/Creatinine Ratio Glucose Lactate Calcium Total Bilirubin AST ALT Alkaline Phosphatase Total Protein Albumin Globulin Albumin/Globulin Ratio Lipase Serum , Qual Negative Urine RBC None seen Urine WBC 0-1/hpf Ur Squamous Epith Cells 0-1 /hpf Urine Bacteria None seen Ur Culture Indicated? Cult not indicated 02/05/19 05:30 WBC RBC Hgb Hct MCV MCH MCHC RDW Plt Count Neut % (Auto) Lymph % (Auto) [place] % (Auto) Eos % (Auto) Baso % (Auto) Neut # (Auto) Lymph # (Auto) [place] # (Auto) Eos # (Auto) Baso # (Auto) Sodium 137 Potassium 3.4 Chloride 105 Carbon Dioxide 26 BUN 9 Creatinine 0.80 Estimated GFR > 60.0 BUN/Creatinine Ratio 11.3 Glucose 102 H Lactate Calcium 8.2 L Total Bilirubin AST ALT Alkaline Phosphatase Total Protein Albumin Globulin Albumin/Globulin Ratio Lipase Serum , Qual Urine RBC Urine WBC Ur Squamous Epith Cells Urine Bacteria Ur Culture Indicated? Assessment & Plan Assessment & Plan narrative: (1) Ulcerative colitis with rectal bleeding: Current visit: Yes Status: Acute Assessment & Plan narrative: Continue bowel rest, fluids and antibiotic/steroid treatment - IV Ceftriaxone 1 gram daily and metronidazole 500 mg IV 4 times daily - Pain control with toradal and low dose IV dilaudid - d5 half normal saline at 100 ml/hour - add Solu-Medrol IV. - Repeat CBC and ESR tomorrow. Patient is on inpatient status as her stay is anticipated to exceed 2 midnights. D5 half NS at 100 ml/hour VTE Prophylaxis: bilateral SCDs Disposition: Probable discharge to home Code status: Full Code Quality VTE Deep Vein Thrombosis/Pulmonary Embolism Present on Admission: No
[2019-02-05] MEDS: methylPREDNISolone 125 MG/2 ML VIAL 60 MG IV ×2 (10:48→17:39)
--- NOTE | 2019-02-05 11:51 | PC.NURSE ---
GI: BT's active this am, has pain to the lt side of abd mid to lower quad. No nausea. Toradol has been holding her for pain. She has been avoiding the dilaudid since it made her feel a little nausea this morning but knows she can have it. Has been up in the room amb. No liquid bms so far this shift but did have 3 liquid stools over night. They are bld tinged per pt. Cont w/antibiotics and monitoring status. Cont w/poc.
--- NOTE | 2019-02-05 13:27 | DIET.PN ---
Diet consult: Interviewed pt. Reports she has not yet eaten, but clear liquids will be fine for now. Appetite poor right now. Reports wt stable but usually loses wt when U.C. flares up. Has had this dx since about age 13. Pt has a referral to see a dietitian, but hasn't yet followed up on it. Dx: U.C. flare w/rectal bleeding Diet: clear liquid BMI 24 Assessment: Poor PO intake r/t pain; on Clear liquid diet. Intervention: Provided brief ed on diet therapy for U.C. This is best pursued after flare resolved. Encouraged pt to pursue the RD consult. Plan: Suggest when pt ready to advance to [place]. may temporarily want low fiber to not aggravate loose stools.
--- NOTE | 2019-02-05 15:05 | CM.DANOTE ---
Discharge Planning/Care Management DCP: assessment: case received EMR reviewed. Discussed POC in Team Rounds. Pt is a 28 year old female who admitted last night to care of the hospitalist team. Payer: [facility] Met now with pt and her mother and father, at bedside. Introduced self and role. Pt clarifies that she does not have a PCP: she tried to establish one recently but was told she would have to come in for an interview first and since she is moving in 2 weeks she decided to wait and establish in her new area. She does have a GI physician in [place] and plans to follow there. Pt says she is hopeful she will be recovered enough to d/c home tomorrow. She is assured that Dr. Bardales will be seeing her tomorrow and will be the one who decides if she is stable for same. Will follow tomorrow prn CM Discharge Assessment Start: 02/05/19 15:03 Freq: Status: Active Protocol: Document 02/05/19 15:04 ITV (Rec: 02/05/19 15:05 ITV [id number]) Discharge Planning Assessment Advance Directives? No History Provided By Medical Record Prior Living Arrangements House Household Members spouse family Independent with ADL's Yes Is patient alert and oriented? Yes Review Status In Process Next Review Type Continued Stay Review
[2019-02-06] MEDS: methylPREDNISolone 125 MG/2 ML VIAL 60 MG IV ×3 (00:55→17:20)
[2019-02-06] MEDS: metroNIDAZOLE 500 MG/100 ML PIGGYBACK 100 MG IV ×4 (00:55→19:37)
[2019-02-06] MEDS: DEXTROSE 5%-0.45% NS 1,000 ML 100 ML IV (00:56)
[2019-02-06] MEDS: KETOROLAC 15 MG/ML VIAL IV ×4 (02:17→19:37)
[2019-02-06 04:10] VITALS: BP 101/51; PULSE 62; RESP 16; TEMP 36.3; O2SAT 98
[2019-02-06 06:00] LABS: Add Manual Diff / Slide Review NO; Basophils Absolute Auto 0 /uL (0-100); Eosinophils Absolute Auto 0 /uL (0-450); Hematocrit 39.6 % (36-46); Hemoglobin 13.4 g/dL (12.0-16.0); Lymphocytes Absolute Auto 600 /uL (1100-4500); Lymphocytes Percent Auto 4.3 % (25-40); Mean Corpuscular HGB Conc 33.8 % (30-36); Mean Corpuscular Volume 88.7 fL (80-100); Monocytes Absolute Auto 300 /uL (0-900); Monocytes Percent Auto 2.1 % (3-14); Neutrophils Absolute Auto 12800 /uL (1500-7000); Neutrophils Percent Auto 93.6 % (50-75); Platelet Count 227 X10^3/uL (150-400); Red Blood Cell Count 4.46 X10^6/uL (4.0-5.2); Red Cell Distribution Width 12.7 % (11.6-14.8); White Blood Cell Count 13.7 X10^3/uL (4.5-11.0)
[2019-02-06 06:22] LABS: Erythrocyte Sedimentation Rate 7 MM/HR (0-20)
[2019-02-06 08:10] VITALS: O2SAT 100
[2019-02-06] MEDS: LACTOBACILLUS ACIDOPHILUS TABLET 1 EACH PO (09:13)
[2019-02-06 09:20] VITALS: BP 104/48; PULSE 71; RESP 16; TEMP 36.3; O2SAT 100
--- NOTE | 2019-02-06 10:27 | PM.PN.1 ---
Subjective Date Patient Seen: 02/06/19 Time Patient Seen: 10:27 Interval history: She is seen today to follow up her ulcer colitis and abdominal pain. The abdominal pain has improved. The sed rate is 7. The white blood count has risen from 11.6, up to 30.7. She is hungry and wishes to advanced her diet. Her CT scan is reviewed and confirmed showed diffuse thickening of the ascending, through to the rectal colon. Exam Vital Signs (past 8 hours): - 02/06/19 04:10 02/06/19 08:10 02/06/19 09:20 Temperature 97.3 F L 97.3 F L Pulse Rate 62 71 Respiratory Rate 16 16 Blood Pressure 101/51 L 104/48 L Pulse Oximetry 98 100 100 Oxygen Delivery Method Room Air Oxygen Flow Rate 0 Narrative Exam Narrative: Alert, oriented x3, no apparent distress Heart is regular rate and rhythm without murmur. Lungs are clear to auscultation bilaterally. Abdomen is soft, less tender than yesterday in the left upper quadrant. There is no organomegaly. There is no ankle edema. Objective Labs Result Diagrams: 02/06/19 05:43 02/05/19 05:30 Labs: Laboratory Results - last 24 hr 02/06/19 02/06/19 05:43 05:43 WBC 13.7 H RBC 4.46 Hgb 13.4 Hct 39.6 MCV 88.7 MCH 30.0 MCHC 33.8 RDW 12.7 Plt Count 227 Neut % (Auto) 93.6 H D Lymph % (Auto) 4.3 L D [place] % (Auto) 2.1 L Eos % (Auto) 0.0 L Baso % (Auto) 0.0 Neut # (Auto) 44928 H Lymph # (Auto) 600 L [place] # (Auto) 300 Eos # (Auto) 0 Baso # (Auto) 0 ESR 7 Assessment & Plan Assessment & Plan narrative: (1) Ulcerative colitis with rectal bleeding: Current visit: Yes Status: Acute Assessment & Plan narrative: Continue bowel rest, fluids and antibiotic/steroid treatment - IV Ceftriaxone 1 gram daily and metronidazole 500 mg IV 4 times daily, which can probably be stopped tomorrow. - Pain control with Toradol and low dose IV dilaudid -advancing diet to low residue and stopping IV fluids today. - added Solu-Medrol IV yesterday. -no further labs needed, anticipating discharge soon on oral steroids if tolerating oral intake. Patient is on inpatient status as her stay is anticipated to exceed 2 midnights and she failed to improve on outpatient therapy. Stopping IV fluids today. VTE Prophylaxis: bilateral SCDs Disposition: Probable discharge to home later today or tomorrow Code status: Full Code Quality VTE Deep Vein Thrombosis/Pulmonary Embolism Present on Admission: No
[2019-02-06] MEDS: HYDROMORPHONE 0.5 MG INJ IV ×2 (11:30→22:22)
--- NOTE | 2019-02-06 14:30 | PC.NURSE ---
Pt has started on a low residue diet for lunch, inst Pt on BRAT diet foods. Pt db toast and banana,. Pt cont to have loose BMs, w/streaks of blood noted. Pt states the blood is normal for her, usually more. Pt cont on IV antix, requests IV dilaudid for abd pain mngmnt w/good results. Pt is pleasant & cooperative w/care needs.
[2019-02-06 15:55] VITALS: BP 109/55; PULSE 68; RESP 16; TEMP 36.7; O2SAT 98
[2019-02-06 17:10] VITALS: O2SAT 98
[2019-02-06 20:17] VITALS: BP 118/48; PULSE 73; RESP 16; TEMP 36.8; O2SAT 98
[2019-02-06] MEDS: CEFTRIAXONE 1 GM/50 ML FROZ.PIGGY IV (22:48)
[2019-02-07 00:24] VITALS: BP 116/66; PULSE 57; RESP 16; TEMP 37.1; O2SAT 97
[2019-02-07] MEDS: methylPREDNISolone 125 MG/2 ML VIAL 60 MG IV ×2 (01:13→08:45)
[2019-02-07] MEDS: KETOROLAC 15 MG/ML VIAL IV ×2 (01:13→06:49)
[2019-02-07] MEDS: metroNIDAZOLE 500 MG/100 ML PIGGYBACK 100 MG IV ×2 (01:14→06:48)
[2019-02-07 04:00] VITALS: BP 105/52; PULSE 55; RESP 15; TEMP 37.1; O2SAT 98
--- NOTE | 2019-02-07 06:43 | PC.NURSE ---
Assumed care of pt at 2300 on 02/06/19. pt awake resting in bed during bedside hand-off. Reports stooling has decreased and abd pain much improved. Bowel sounds present and reports flatus. Denies nausea on BRAT/low residue diet. IV s.l. with intermit abx. Independent in room. Calling appropriately for needs.
[2019-02-07 08:17] VITALS: O2SAT 96
[2019-02-07] MEDS: LACTOBACILLUS ACIDOPHILUS TABLET 1 EACH PO (08:45)
[2019-02-07] MEDS: HYDROMORPHONE 0.5 MG INJ IV (08:47)
[2019-02-07 09:00] VITALS: BP 114/58; PULSE 58; RESP 16; TEMP 36.3; O2SAT 100
--- NOTE | 2019-02-07 12:04 | P.DS_ITS ---
History of Present Illness Date Patient Seen: 02/04/19 Chief complaint: states has Colitis and a flare up Narrative: Written by Maritza Ro [employer]ONRY CONTRACTOR: 28 y.o. female with a several day with a history of ulcerative colitis, now seen a second day in a row for this. She was seen on 02/04 in the evening, was diagnosed with a cristobal colitis and was advised to stay, but declined. CT scan performed yesterday indicated a cristobal colitis. She was discharged on oral predinisone, ciprofloxacin and metronidazole. She returns today with worsening abdominal cramping and bloody stool. In the ED, they discussed her case with Dr. Taylor, general surgery, then with a sample supervisor at [facility] in [place] both who advised conservative medical management with fluids, bowel rest and antibiotics. Since yesterday her white count increased from 13 to 16. Patient states she was admitted back in 2017 for a ?flare up? and was seen Dr. Patrice Parsons with GI in [place] in 2017. But has not had any follow-up since then. Discharge Providers Date of admission: 02/04/19 22:59 Discharge Date: 02/07/19 Consults: 02/05/19 23:15 Consult to Dietitian, Adult Routine Comment: Reason For Exam: ulcerative colitis Discharge provider: Tereza Carver DO Summary Discharge Diagnosis: 1. Ulcerative colitis with rectal bleeding, present on admission. Resolving. Hospital Course: 1. Ulcerative colitis with rectal bleeding, present on admission. Resolving. -Patient presented with hematochezia and worsening abdominal pain. Failed conservative oupatient therapy. -CT abdomen and pelvis demonstrated diffuse wall thickening of the colon from the distal ascending colon through rectum consitent with UC. -Initially placed on bowel rest then advanced diet as tolerated. Patient on full liquids and soft diet at discharge. Continued IV fluids until adequately hydrated. -Received ceftriaxone 1 g IV daily and metronidazole 500 mg IV 4 times daily w hich was discontinued as unlikely that there was any infectious component. Patient with known history of UC and improved once glucocorticoids started. -Continued pain control with Toradol and low dose IV dilaudid transitioned to hydrocodone. Discharged with small amount of hydrocodone 5-325 mg 3 times daily as need for severe pain and to use sparingly. -Started on methyprednisolone 60 mg every 8 hours and tapered to prednisone and discharged on slow glucocorticoid taper with prednisone 60 mg daily and taper down by 10 mg each week to 20 mg daily and continue until started on maintenance therapy by her GI specialist in Dr. Issa Eli. Status at Discharge Functional status at discharge: independent ambulation Overall status at discharge: patient is progressing back to baseline Exam Vital Signs (past 8 hours): - 02/07/19 08:17 02/07/19 09:00 Temperature 97.4 F L Pulse Rate 58 L Respiratory Rate 16 Blood Pressure 114/58 L Pulse Oximetry 96 100 Oxygen Delivery Method Room Air Oxygen Flow Rate 0 Narrative Exam Narrative: General: Young female lying in bed and in no acute distress, well-developed, well-nourished, appropriately interactive. HEENT: Normocephalic, atraumatic. External ears without defect. Pupils equal, round, and reactive to light. Anicteric sclerae, moist conjunctivae, and no lid lag. Oropharynx free of erythema and cobble stoning with moist mucosa. Neck: Supple with full range of motion. No lymphadenopathy or thyromegaly. Cardiovascular: Regular rate and rhythm with no murmurs, rubs, or gallops appreciated. Pulmonary: Clear to auscultation bilaterally with no crackles, wheezes, or rhonchi. Normal respiratory effort with no use of accessory muscles. Abdomen:Soft, very subtle tenderness in LLQ, nondistended. No hepatosplenomegaly or masses appreciated. Extremities: No clubbing, cyanosis, or edema. Skin: Normal temperature, turgor, and texture; no rash, ulcers, or subcutaneous nodules appreciated. Neurological: Cranial nerves grossly intact. Psychiatric: Normal mood and affect. Alert and oriented to person, place, and time. Objective Labs Result Diagrams: 02/06/19 05:43 02/05/19 05:30 Discharge Plan Discharge Plan Patient Disposition: Home Discharge comment: You are being discharged home. Please call first thing tomorrow morning to schedule a follow-up appointment with your GI, Dr. Parsons, or one of his colleagues as soon as possible. You will be on a short steroid taper to finish treating your UC flare. You will start prednisone 60 mg daily and decrease by 10 mg each week until you get to 20 mg daily then continue once daily until instructed otherwise by your GI doctor. He may want to shorten this steroid taper and/or start maintenance therapy before you're completely finished with prednisone. You were also provided a prescription for pain medication called hydrocodone 5-325 mg every 6 hours as needed for severe pain. Please use the pain medication sparingly and only as written on the bottle. Do not mix with drugs or alcohol and do not use while driving. Discharge Med Rec/Prescriptions Prescriptions: New hydrocodone-acetaminophen 5-325 mg Tablet 1 tab PO Q6HR PRN (Reason: Pain, Moderate (4-6)) Qty: 20 RF: 0 prednisone 10 mg tablet 60 mg PO DAILY Qty: 140 RF: 0 Continued Probiotic capsule 1 cap PO DAILY RF: 0 tramadol 50 mg tablet 50 mg PO Q6-8H PRN (Reason: pain) Qty: 15 RF: 0 Discontinued omega-3 fatty acids [Fish Oil Concentrate] 1,000 mg capsule 1,000 mg PO DAILY RF: 0 metronidazole 500 mg tablet 500 mg PO Q8H 7 Days Qty: 21 RF: 0 ciprofloxacin HCl [Cipro] 500 mg tablet 500 mg PO BID 7 Days Qty: 14 RF: 0 Provider Discharge Instructions Diet: Diet as Tolerated Activity: Activity as tolerated Visit Report/Discharge Packet Instructions: Natural and Alternative Treatment Study Report: Turmeric for Ulcerative Col, Ulcerative Colitis (Alternative Therapy), Inflammatory Bowel Disease, [place] Diet, Low-Fiber/Low-Residue Diet, DI for Ulcerative Colitis, Prednisone, Low FODMAP Diet, Fecal Transplants Induce Ulcerative Colitis Remission, Hydrocodone/Acetaminophen (By mouth) Discharge Data Attending Provider: Maritza Ro Admit Date/Time: 02/04/19 22:59 Discharges patient from system. Discharge Date/Time: 02/07/19 12:45 Quality VTE Deep Vein Thrombosis/Pulmonary Embolism Present on Admission: No
--- NOTE | 2019-02-07 12:42 | PC.NURSE ---
Day shift: Pt left unit at approx 1240. She ambulated with this bond underwriter. No c/o of SOB or pain. Paperwork signed and all questions answered. Pt has MD santiago and all personal belongings.
== END 2019-02-07 12:45 | disposition home or self-care (01) | DRG 387 ==
LOC: ED 22:26 → AC 02-05 07:15
PROVIDERS: Family Medicine; Admitting Provider Nurse Practitioner Family; Emergency Provider Emergency Medicine; Visit Provider Nurse Practitioner Family
DX: K51.90 Ulcerative colitis, unspecified, without complications (principal); F41.9 Anxiety disorder, unspecified; F17.290 Nicotine dependence, other tobacco product, uncomplicated
CPT/HCPCS: 36415; 36591; 80048; 80053; 81003; 81015; 83605; 83690; 84703; 85025; 85651; 86677; 96374; 96376; 99283; J1170; J1885; J2405; J2930